=== PATIENT | male | born 1970 | race Two or more races ===

== ENCOUNTER 2016-05-17 14:13 | Emergency (ER) | payer BC, OTHER ==
[2016-05-17] MEDS ORDERED: oxyCODONE HCL/ACETAMINOPHEN 1 TAB TABLET PO ONE (14:21)
[2016-05-17] MEDS ORDERED: DIPHTH,PERTUSS(ACELL),TET VAC 0.5 ML VIAL IM ONE ×2 (14:21→14:23)
[2016-05-17] MEDS ORDERED: oxyCODONE HCL/ACETAMINOPHEN 1 TAB TABLET ONE (14:23)
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
[2016-05-17 17:04] VITALS: BP 124/89
== END 2016-05-17 17:13 | disposition home or self-care (01) ==
LOC: ER 14:13
PROC: 2W3EX1Z Immobilization of Right Hand using Splint (ICD-10-PCS; principal; 2016-05-17)
PROC: 2W3RX1Z Immobilization of Left Lower Leg using Splint (ICD-10-PCS; 2016-05-17)
DX: S30.811A Abrasion of abdominal wall, initial encounter (principal); S00.81XA Abrasion of other part of head, initial encounter; S30.810A Abrasion of lower back and pelvis, initial encounter; S50.311A Abrasion of right elbow, initial encounter; S50.811A Abrasion of right forearm, initial encounter; S80.212A Abrasion, left knee, initial encounter; S80.211A Abrasion, right knee, initial encounter; V28.0XXA Motorcycle driver injured in noncollision transport accident in nontraffic accident, initial encounter; Y92.410 Unspecified street and highway as the place of occurrence of the external cause; S93.402A Sprain of unspecified ligament of left ankle, initial encounter; S62.316A Displaced fracture of base of fifth metacarpal bone, right hand, initial encounter for closed fracture; S82.832A Other fracture of upper and lower end of left fibula, initial encounter for closed fracture; Z23 Encounter for immunization